=== PATIENT | male | born 1930 | race Caucasian/White ===

== ENCOUNTER 2017-01-22 16:35 | Emergency (ER) | payer MEDICARE ==
--- NOTE | 2017-01-22 17:09 | ED ---
Psych HPI <Mitesh Causey - Last Filed: 01/22/17 22:52> - General Source: patient, RN notes reviewed Mode of arrival: ambulatory <Mercedes Torres - Last Filed: 01/23/17 01:38> <Vinay Steve - Last Filed: 01/23/17 11:06> - General Chief Complaint: Psychiatric Symptoms Stated Complaint: Mental Health Time Seen by Provider: 01/22/17 16:58 - History of Present Illness Initial Comments: 86-year-old male presents to the emergency department with a chief complaint hypertension suicidal thoughts. Patient states his blood pressures been up over the last 2 days. Patient states he saw his doctor today and they adjusted his medications. Patient states that his doctor also saw him today and he expressed thoughts about not wanting to live anymore. He states that he wonders why he is here he is not contributing to light. Patient states that increases psychiatric medication but sent him here due to these thoughts. Patient states he does not have a specific plan. Patient does admit to a history of these thoughts 2 years ago. Patient states that he does have history of seen a psychiatrist tender. Patient denies any acute health concerns besides the elevated blood pressure that he had at home. She denies any pain. Family states that were concerned due to him expressing these concerns without that he should be evaluated. Patient denies any recent fever, chills, shortness of breath, chest pain, back pain, abdominal pain, nausea vomiting, numbness or tingling, dysuria or hematuria, constipation or diarrhea, headaches or visual changes, or any other current symptoms. (Mercedes Torres) - Related Data Home Medications Medication Instructions Recorded Confirmed Ergocalciferol (Vitamin D2) 50,000 unit PO Q7D 01/22/17 01/23/17 [Vitamin D2] Hydrochlorothiazide 25 mg PO DAILY 01/22/17 01/23/17 Metoprolol Tartrate [Lopressor] 50 mg PO TID 01/22/17 01/23/17 OLANZapine [ZyPREXA] 5 mg PO HS 01/22/17 01/23/17 Oxybutynin Chloride [Oxybutynin 10 mg PO DAILY 01/22/17 01/23/17 Chloride ER] Pantoprazole Sodium [Protonix] 40 mg PO DAILY 01/22/17 01/23/17 cloNIDine HCL [Catapres] 0.2 mg PO TID 01/22/17 01/23/17 Losartan Potassium [Cozaar] 25 mg PO DAILY 01/23/17 01/23/17 Previous Rx's Medication Instructions Recorded Allopurinol [Zyloprim] 100 mg PO DAILY #0 06/12/15 Atorvastatin [Lipitor] 80 mg PO DAILY #30 tab 06/12/15 Isosorbide Mononitrate ER [Imdur] 30 mg PO DAILY #30 tab 06/12/15 Clopidogrel [Plavix] 75 mg PO DAILY #30 tab 06/17/15 Nitroglycerin Sl Tabs [Nitrostat] 0.4 mg SUBLINGUAL Q5M PRN #25 tab 06/17/15 Allergies Allergy/AdvReac Type Severity Reaction Status Date / Time erythromycin base Allergy Unknown Verified 01/23/17 10:22 Penicillins Allergy Unknown Verified 01/23/17 10:22 Review of Systems ROS Other: All systems not noted in ROS Statement are negative. <Mitesh Causey - Last Filed: 01/22/17 22:52> ROS Other: All systems not noted in ROS Statement are negative. <Mercedes Torres - Last Filed: 01/23/17 01:38> ROS Other: All systems not noted in ROS Statement are negative. <Vinay Steve - Last Filed: 01/23/17 11:06> ROS Statement: Those systems with pertinent positive or pertinent negative responses have been documented in the HPI. Past Medical History Past Medical History: Cancer, Hyperlipidemia, Hypertension, Myocardial Infarction (CO), Osteoarthritis (OA), Prostate Disorder Additional Past Medical History / Comment(s): 06/10/15 Pt presented to [facility] ER via EMS. He felt his throat was possibly closing. Did have alittle bit of ROMEO earlier today. Upon arrival to ER symptoms had resolved. Other HX: Generalized weakness- just started home PT for strengthening 3 weeks ago, hyperlipidemia in the past and was on med but no longer, itchy skin- some kind of rash at times, gout, prostate and skin cancer, diverticulosis, cataract L eye , generalized arthiritis, frequent belching, incontinent at times. Last Myocardial Infarction Date:: 1999 History of Any Multi-Drug Resistant Organisms: None Reported Past Surgical History: Appendectomy, Cholecystectomy, Heart Catheterization With Stent, Hernia Repair, Prostate Surgery Additional Past Surgical History / Comment(s): 1999 PTCA with stents x 2 (one vessel involved-1st stent occluded thereby needing 2nd stent same vessel), prostate removed secondary to cancer-post op incision problems requiring additional surgery and also a L sided hernia repair, partial colectomy with temperary colostomy due to perforation, colonoscopies-benign polypectomy cataracts Past Anesthesia/Blood Transfusion Reactions: No Reported Reaction Additional Past Anesthesia/Blood Transfusion Reaction / Comment(s): Pt has received blood before without reaction Date of Last Stent Placement:: 1999 Past Psychological History: Anxiety, Depression Smoking Status: Never smoker Past Alcohol Use History: Rare Past Drug Use History: None Reported - Past Family History Father Family Medical History: Osteoarthritis (OA) Additional Family Medical History / Comment(s): Father was an alcoholic. Mother Family Medical History: Cancer Additional Family Medical History / Comment(s): Mother had thyroid cancer and from it at age 71 yrs. <Mercedes Torres - Last Filed: 01/23/17 01:38> General Exam Limitations: no limitations General appearance: alert, in no apparent distress Eye exam: Present: normal appearance, PERRL, EOMI. Absent: scleral icterus, conjunctival injection, periorbital swelling ENT exam: Present: normal exam, mucous membranes moist Neck exam: Present: normal inspection. Absent: tenderness, meningismus, lymphadenopathy Respiratory exam: Present: normal lung sounds bilaterally. Absent: respiratory distress, wheezes, rales, rhonchi, stridor Cardiovascular Exam: Present: regular rate, normal rhythm, normal heart sounds. Absent: systolic murmur, diastolic murmur, rubs, gallop, clicks Neurological exam: Present: alert, oriented X3 Psychiatric exam: Present: depressed, suicidal ideation (no plan). Absent: homicidal ideation Skin exam: Present: warm, dry, intact, normal color. Absent: rash <Mercedes Torres - Last Filed: 01/23/17 01:38> Course <Mitesh Causey - Last Filed: 01/22/17 22:52> <Mercedes Torres - Last Filed: 01/23/17 01:38> <Vinay Steve - Last Filed: 01/23/17 11:06> Vital Signs 01/22/17 01/22/17 01/22/17 16:53 19:35 19:38 Temperature 98.0 F 97.7 F Pulse Rate 91 68 Respiratory 18 18 Rate Blood Pressure 183/87 126/73 O2 Sat by Pulse 98 96 Oximetry 01/22/17 01/23/17 01/23/17 22:22 00:06 01:23 Temperature 97.3 F L Pulse Rate 71 70 65 Respiratory 18 18 16 Rate Blood Pressure 148/78 151/78 125/67 O2 Sat by Pulse 95 96 96 Oximetry 01/23/17 01/23/17 01/23/17 03:19 06:03 09:00 Temperature 97.7 F Pulse Rate 67 56 L 63 Respiratory 20 20 18 Rate Blood Pressure 142/71 109/56 137/78 O2 Sat by Pulse 96 96 94 L Oximetry - Reevaluation(s) Reevaluation #1: 01/23/17 11:05 Patient resting comfortably in emergency department stroke in the morning. He is pending transfer to a geriatric psychiatric facility [facility] (Vinay Steve) Medical Decision Making - Lab Data Result diagrams: 01/22/17 17:23 01/22/17 17:23 <Mitesh Causey - Last Filed: 01/22/17 22:52> - Lab Data Result diagrams: 01/22/17 17:23 01/22/17 17:23 <Mercedes Torres - Last Filed: 01/23/17 01:38> - Lab Data Result diagrams: 01/22/17 17:23 01/22/17 17:23 <Vinay Steve - Last Filed: 01/23/17 11:06> - Medical Decision Making I saw this patient in conjunction with the physician assistant professor of geography. I performed independent history and physical exam. Agree with case management. (Mitesh Causey) 86-year-old male presents for elevated blood pressure that does appear to be improved compared to his readings at home. As well as suicidal thoughts. This patient has no plan. This time patient's record is reviewed and does not show an acute process. This time patient is cleared to be evaluated by psychiatry. At this time they are arranging patient for a geriatric psych transfer. This time patient was found to be dehydrated patient was given fluids for hydration. (Mecredes Torres) - Lab Data Lab Results 01/22/17 01/22/17 01/22/17 Range/Units 17:23 17:23 17:50 WBC 8.8 (3.8-10.6) k/uL RBC 4.49 (4.30-5.90) m/uL Hgb 12.5 L (13.0-17.5) gm/dL Hct 39.7 (39.0-53.0) % MCV 88.5 (80.0-100.0) fL MCH 27.8 (25.0-35.0) pg MCHC 31.4 (31.0-37.0) g/dL RDW 16.3 H (11.5-15.5) % Plt Count 226 (150-450) k/uL Neutrophils % 61 % Lymphocytes % 27 % Monocytes % 6 % Eosinophils % 3 % Basophils % 0 % Neutrophils # 5.4 (1.3-7.7) k/uL Lymphocytes # 2.3 (1.0-4.8) k/uL Monocytes # 0.5 (0-1.0) k/uL Eosinophils # 0.3 (0-0.7) k/uL Basophils # 0.0 (0-0.2) k/uL Hypochromasia Slight Anisocytosis Slight Sodium 143 (137-145) mmol/L Potassium 4.1 (3.5-5.1) mmol/L Chloride 109 H (98-107) mmol/L Carbon Dioxide 20 L (22-30) mmol/L Anion Gap 14 mmol/L BUN 22 H (9-20) mg/dL Creatinine 1.50 H (0.66-1.25) mg/dL Est GFR (MDRD) Af Amer 54 (>60 ml/min/1.73 sqM) Est GFR (MDRD) Non-Af 44 (>60 ml/min/1.73 sqM) Glucose 130 H (74-99) mg/dL Calcium 9.3 (8.4-10.2) mg/dL Total Bilirubin 1.1 (0.2-1.3) mg/dL AST 19 (17-59) U/L ALT 28 (21-72) U/L Alkaline Phosphatase 105 (38-126) U/L Total Protein 7.1 (6.3-8.2) g/dL Albumin 4.3 (3.5-5.0) g/dL Urine Color Yellow Urine Appearance Clear (Clear) Urine pH 5.5 (5.0-8.0) Ur Specific Nunda 1.019 (1.001-1.035) Urine Protein 1+ H (Negative) Urine Glucose (UA) Negative (Negative) Urine Ketones Negative (Negative) Urine Blood Negative (Negative) Urine Nitrite Negative (Negative) Urine Bilirubin Negative (Negative) Urine Urobilinogen <2.0 (<2.0) mg/dL Ur Leukocyte Esterase Negative (Negative) Urine RBC <1 (0-5) /hpf Urine WBC 1 (0-5) /hpf Ur Squamous Epith Cells 1 (0-4) /hpf Urine Bacteria Rare H (None) /hpf Hyaline Casts 1 (0-2) /lpf Urine Mucus Rare H (None) /hpf Urine Opiates Screen Not Detected (NotDetected) Ur Oxycodone Screen Not Detected (NotDetected) Urine Methadone Screen Not Detected (NotDetected) Ur Propoxyphene Screen Not Detected (NotDetected) Ur Barbiturates Screen Not Detected (NotDetected) U Tricyclic Antidepress Not Detected (NotDetected) Ur Phencyclidine Scrn Not Detected (NotDetected) Ur Amphetamines Screen Not Detected (NotDetected) U Methamphetamines Scrn Not Detected (NotDetected) U Benzodiazepines Scrn Not Detected (NotDetected) Urine Cocaine Screen Not Detected (NotDetected) U Marijuana (THC) Screen Not Detected (NotDetected) Disposition <Mitesh Causey - Last Filed: 01/22/17 22:52> <Mercedes Torres - Last Filed: 01/23/17 01:38> - Out of Hospital Transfer - Req. Specs Out of Hospital Transfer - Requested Specifics: Psychiatric Non-ICU <Vinay Steve - Last Filed: 01/23/17 11:06> Clinical Impression: Depression, Dehydration, mild, Hypertension, Suicidal ideation Disposition: TRANSFER TO PSYCH HOSP/UNIT Condition: Stable Referrals: Akbar Corral DO [Primary Care Provider] - 1-2 days
[2017-01-22 17:33] LABS: Anisocytosis Slight; Basophils % (A) 0 %; CH 27.4; Eosinophils # (A) 0.3 k/uL (0-0.7); Eosinophils % (A) 3 %; HCT 39.7 % (39.0-53.0); HDW 2.75; HGB 12.5 gm/dL (13.0-17.5); Hypochromasia Slight; Luc # (Auto) 0.28; Luc % (Auto) 3; Lymphocytes # (A) 2.3 k/uL (1.0-4.8); Lymphocytes % (A) 27 %; MCH 27.8 pg (25.0-35.0); MCHC 31.4 g/dL (31.0-37.0); MCV 88.5 fL (80.0-100.0); Monocytes # (A) 0.5 k/uL (0-1.0); Monocytes % (A) 6 %; Neutrophils # (A) 5.4 k/uL (1.3-7.7); Neutrophils % (A) 61 %; RBC 4.49 m/uL (4.30-5.90); RDW 16.3 % (11.5-15.5); WBC 8.8 k/uL (3.8-10.6); WBC (Perox) 9.33
[2017-01-22 17:49] LABS: Calcium 9.3 mg/dL (8.4-10.2); Potassium 4.1 mmol/L (3.5-5.1); Total Bilirubin 1.1 mg/dL (0.2-1.3); Total Protein 7.1 g/dL (6.3-8.2)
[2017-01-22 18:54] LABS: Appearance,Urine Clear (Clear); Bacteria,Urine Rare /hpf; Bilirubin,Urine Negative (Negative); Glucose,Urine (UA) Negative (Negative); Ketones,Urine Negative (Negative); Leukocyte Esterase,Urine Negative (Negative); Mucus,Urine Rare /hpf; Nitrite,Urine Negative (Negative); PH, Urine 5.5 (5.0-8.0); Particle Count 1553; Protein,Urine 1+ (Negative); RBC,Urine <1 /hpf (0-5); Specific Gravity,Urine 1.019 (1.001-1.035); Squamous Epithelial Cell,Urine 1 /hpf (0-4); UA Billing (MACRO vs. MICRO) MICRO; Urobilinogen,Urine <2.0 mg/dL (<2.0); WBC,Urine 1 /hpf (0-5)
[2017-01-22] MEDS ORDERED: ERGOCALCIFEROL 50,000 UNIT CAP PO SCH (22:30)
[2017-01-22] MEDS ORDERED: cloNIDine HCL 0.2 MG TAB PO ONE (23:45)
[2017-01-22] MEDS ORDERED: ATORVASTATIN 80 MG TAB PO ONE (23:45)
[2017-01-22] MEDS ORDERED: OLANZapine 5 MG TAB PO ONE (23:45)
[2017-01-22] MEDS ORDERED: METOPROLOL TARTRATE 50 MG TAB PO ONE (23:45)
[2017-01-23] MEDS ORDERED: PANTOPRAZOLE 40 MG TABLET PO SCH (09:00)
[2017-01-23] MEDS ORDERED: HYDROCHLOROTHIAZIDE 25 MG TAB PO SCH (09:00)
[2017-01-23] MEDS ORDERED: OXYBUTYNIN 10 MG TAB.ER.24 PO SCH (09:00)
[2017-01-23] MEDS ORDERED: ISOSORBIDE MONONITRATE ER 30 MG TAB.ER.24H PO SCH (09:00)
[2017-01-23] MEDS ORDERED: LOSARTAN 50 MG TAB PO SCH (09:00)
[2017-01-23] MEDS ORDERED: CLOPIDOGREL 75 MG TAB PO SCH (09:00)
[2017-01-23] MEDS ORDERED: ALLOPURINOL 100 MG TAB PO SCH (09:00)
[2017-01-23] MEDS ORDERED: ATORVASTATIN 80 MG TAB PO SCH ×2 (09:00→21:00)
[2017-01-23] MEDS: cloNIDine HCL 0.2 MG TAB PO SCH ×2 (09:30→17:00)
[2017-01-23] MEDS: METOPROLOL TARTRATE 50 MG TAB PO SCH ×2 (09:33→17:00)
[2017-01-23 18:20] VITALS: BP 118/56; PULSE 71; RESP 20; TEMP 98.3
[2017-01-23] MEDS ORDERED: OLANZapine 5 MG TAB PO SCH (21:00)
[2017-01-27] MEDS ORDERED: ERGOCALCIFEROL 50,000 UNIT CAP PO SCH (12:00)
== END 2017-01-23 18:20 ==
LOC: EC 16:35
DX: F32.9 Major depressive disorder, single episode, unspecified (principal); E86.0 Dehydration; R45.851 Suicidal ideations; I10 Essential (primary) hypertension; Z88.0 Allergy status to penicillin; Z88.1 Allergy status to other antibiotic agents; Z79.899 Other long term (current) drug therapy
CPT/HCPCS: 36415; 80053; 80306; 81001; 82075; 85025; 99285